=== PATIENT | male | born 1990 | race Asian ===

== ENCOUNTER 2023-01-28 10:31 | Outpatient (AMB) | payer OTHER, SELFPAY ==
--- NOTE | 2023-01-28 13:02 | AM.OFFWIN_ITS ---
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 Reporting symptoms of sinus congestion, sore throat and difficulty swallowing. Low-grade fever. No family member is sick. No recent travel. Patient reports symptoms of malaise and fatigue. Patient tested positive for COVID 3 weeks ago. Subsequently has tested negative. [facility] Social History Patient Tobacco Use Status: Never used Tobacco Physical Exam Vital Signs: Last Vital Signs Temp 98.5 F 01/28/23 13:08 Pulse 93 01/28/23 13:08 BP 108/64 01/28/23 13:08 Pulse Ox 94 01/28/23 13:08 Oxygen Delivery Method Room Air 01/28/23 13:08 BMI result Body Mass Index 26.6 Const General: cooperative and healthy appearing Nutritional Appearance: well nourished Orientation/consciousness: patient oriented x3 Limitations: no limitations HEENT Head: Yes normal to inspection Eyes General: appearance normal, both eyes and all related structures Neck Neck: Yes normal visual inspection Chest Chest palpation & inspection: normal palpation of entire chest wall Resp Effort & Inspection: normal respiratory effort Neuro General: patient oriented x3 Assessment & Plan Assessment & Plan (1) Upper respiratory tract infection: Code(s): J06.9 - Acute upper respiratory infection, unspecified Plan: Antibiotics ordered. Increase fluid intake. Tylenol for aches and pains. If symptoms worsen, follow-up here for a recheck. Coding Level of Care Code Est Pt Level 3 (97948) Diagnoses Upper respiratory tract infection J06.9
[2023-01-28 13:08] VITALS: BP 108/64; PULSE 93; TEMP 36.9; O2SAT 94; BMI 26.6
== END 2023-01-28 13:27 | disposition home or self-care (01) ==
PROVIDERS: PCP Internal Medicine; Visit Provider Internal Medicine
DX: J06.9 Acute upper respiratory infection, unspecified (principal)
CPT/HCPCS: 99213

== ENCOUNTER 2023-05-20 11:01 | Outpatient (AMB) | payer OTHER, SELFPAY ==
[2023-05-20 12:01] VITALS: BP 122/78; PULSE 72; TEMP 36.3; O2SAT 97; BMI 27.7
--- NOTE | 2023-05-20 12:01 | AM.OFFWIN_ITS ---
Intake Vital Signs 05/20/23 12:01 Height 5 ft 10 in Weight 193 lb BMI 27.7 BP 122/78 Blood Pressure Location Rt brachial Position Sitting Pulse 72 Pulse Source Pulse Oximeter Temp 97.4 F Pulse Oximetry (%) 97 Oxygen Delivery Method Room Air Intake Visit Reasons: EST/chest congestion/[phone] Intake Note: pt is here today for sore throat started saturday Patient Tobacco Use Status: Never used Tobacco Allergies No Known Allergies [No Known Allergies*] Allergy (Verified 05/20/23 12:02) Do you need a note to return to daycare/school/sports/work: No HPI EST/chest congestion/[phone] HPI Details 33 year old male patient presents today with a 3 day history of sore throat, headache, body aches, fever up to 101. His mother is sick with similar symptoms. He denies any cough or shortness of breath. Denies any GI symptoms. [facility] Social History Patient Tobacco Use Status: Never used Tobacco Review of Systems Const All systems reviewed & are unremarkable except as noted in HPI and below Physical Exam Vital Signs: Last Vital Signs Temp 97.4 F 05/20/23 12:01 Pulse 72 05/20/23 12:01 BP 122/78 05/20/23 12:01 Pulse Ox 97 05/20/23 12:01 Oxygen Delivery Method Room Air 05/20/23 12:01 BMI result Body Mass Index 27.7 Const General: cooperative, healthy appearing and no acute distress Nutritional Appearance: average body habitus HEENT Head: Yes normal to inspection Ears: hearing grossly normal bilaterally General nose exam: Normal external nose present and Normal nasal mucous membranes and turbinates present Face and sinus: Yes normal facial exam Mouth: Normal oral and palatal mucosa present and moist mucous membranes Throat: Yes posterior oropharynx abnormal (erythematous) Neck Neck: Yes no lymphadenopathy Resp Effort & Inspection: normal respiratory effort and able to speak in complete sentences Auscultation: clear to auscultation bilaterally Cardio Jugular venous distension: no JVD Palpation: normal PMI Rate: regular rate Rhythm: regular rhythm Skin General skin exam: no rashes or lesions noted Extrem General: Yes capillary refill normal and Yes no clubbing, cyanosis or edema Psych Appearance: grossly normal Mental Status: mental status grossly normal Speech and movement: Normal speech and movement present Assessment & Plan Assessment & Plan (1) Upper respiratory tract infection: Code(s): J06.9 - Acute upper respiratory infection, unspecified Qualifiers: URI type: unspecified viral URI Qualified Code(s): J06.9 - Acute upper respiratory infection, unspecified Plan: Rapid strep negative. Symptoms consistent with viral illness. Advised conservative measures - rest, hydration, otc cold/flu products for symptomatic treatment. He declines any viral testing. Advised to return to the clinic if he does not improve with time and conservative measures or if symptoms worsen/new symptoms develop. He verbalizes understanding and agrees to plan. Coding Level of Care Code Est Pt Level 3 (54541) Diagnoses Viral upper respiratory tract infection J06.9 URI type: unspecified viral URI
== END 2023-05-20 12:59 | disposition home or self-care (01) ==
PROVIDERS: PCP Internal Medicine; Visit Provider Nurse Practitioner Family
DX: J06.9 Acute upper respiratory infection, unspecified (principal)
CPT/HCPCS: 99213

== ENCOUNTER 2024-02-14 16:50 | Outpatient (AMB) | payer OTHER, SELFPAY ==
[2024-02-14 17:12] VITALS: BP 124/84; PULSE 72; O2SAT 97; BMI 27.4
--- NOTE | 2024-02-14 17:12 | MHC.PC.OV ---
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 Transfering care from Dr. Garay last seen in [facility]-03/07/2016. 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 Accompanied by: Self / Same As Patient Allergies No Known Allergies [No Known Allergies*] Allergy (Verified 02/14/24 17:13) Medication List - Last Reconciled 02/14/24 by Tati Cruz MD ascorbate calcium (vitamin C) 500 mg PO DAILY B-complex with vitamin C 1 tab PO DAILY cholecalciferol (vitamin D3) 50 mcg PO DAILY [creatine PO] Tobacco use date assessed: 02/14/24 Dental Screening Dental Screen Date: 02/14/24 Did you have a dental visit in the last 12 months?: Yes Did you have a dental problem in the last 6 months where you did not have access to dental care?: No Was dental information given to patient?: Patient has dentist HPI 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 in 03/29/2021 complains of dorsum of his foot pain diagnosis of ankle sprain. PAtient complains of pain on the R dorsum of the foot, deny fall or trauma. deny trauma from this. [facility] Medical History (Updated 02/14/24 @ 17:34 by Tati Cruz MD) Tear of lateral meniscus of left knee Dissecting folliculitis of scalp Surgical History (Updated 02/14/24 @ 17:17 by ELISSA Romeo) S/P left knee arthroscopy Family History (Updated 02/14/24 @ 17:29 by Tati Cruz MD) Paternal Uncle CVA (cerebral vascular accident) Social History (Updated 02/14/24 @ 17:30 by Tati Cruz MD) Housing: House Alcohol intake: current Comment: 1-2 Q 2-3 week 2-3 drinks Patient Tobacco Use Status: Never used Tobacco Years Smoked: hx of vape e-Cigarette/Vaping Use: Never Used service: No Current occupational status: employed Cognitive needs: No Hearing needs: No Vision needs: No Questionnaire PHQ-9 Over the last 2 weeks, how often have you been bothered by any of the following problems? 1. Little interest or pleasure in doing things: not at all 2. Feeling down, depressed, or hopeless: not at all 3. Trouble falling or staying asleep, or sleeping too much: not at all 4. Feeling tired or having little energy: not at all 5. Poor appetite or overeating: not at all 6. Feeling bad about yourself - or that you are a failure or have let yourself or your family down: not at all 7. Trouble concentrating on things, such as reading the newspaper or watching television: not at all 8. Moving or speaking so slowly that other people could have noticed. Or the opposite - being so fidgety or restless that you have been moving around a lot more than usual: not at all 9. Thoughts that you would be better off or of hurting yourself in some way: not at all Total score: 0 Depression Screening Interpretation: Negative Depression Screening Done: Yes [id number] - PHQ-9 Billing: Yes Source: Developed by Drs. Michel Kelley, Tessy Perry, Chaitanya Butler and colleagues, with an educational stanislav from [employer]. Thrive Questionnaire Date Thrive assessed: 02/14/24 I am a: Patient What is your living situation today?: I have a steady place to live Within the past 12 months, did the food you bought not last and you didn't have the money to get more?: Never true Within the past 12 months, did you worry whether your food would run out before you got money to buy more?: Never true Do you have trouble paying for medicines?: No Do you have trouble getting transportation to medical appointments?: No Do you have trouble paying your heating and electricity bill?: No Do you have trouble taking care of your child, family member or friend?: No Do you have trouble with day-to-day activities such as bathing, preparing meals, shopping, managing finances, etc.?: No Are you currently unemployed and looking for a job?: No Are you interested in more education?: No Please select the resources that you would like help with: None Currently or been in a relationship where the following occur: No concerns reported THRIVE Score: 0 AUDIT C Alcohol Use Questionnaire (AUDIT-C) 1. How often do you have a drink containing alcohol?: Monthly or less 2. How many drinks containing alcohol do you have on a typical day when you are drinking?: 1 or 2 3. How often do you have six or more drinks on one occasion?: Never Total Score: 1 RENATO-7 AMB Questionnaire RENATO-7 Date RENATO - 7 assessed: 02/14/24 Feeling nervous, anxious, or on edge: 0 = Not at all Not being able to stop or control worryin = Not at all Worrying too much about different things: 0 = Not at all Trouble relaxin = Not at all Being so restless that it is hard to sit still: 0 = Not at all Becoming easily annoyed or irritable: 0 = Not at all Feeling afraid as if something awful might happen: 0 = Not at all Total RENATO-7 score (0-4 normal; 5-9 mild; 10-14 moderate; 15-21 severe): 0 Source: Developed by Drs. Michel Kelley, Tessy Perry, Chaitanya Butler and colleagues, with an educational stanislav from [employer]. RENATO-7 Assessment Billing RENATO-7 Assessment Tool: RENATO-7 Assessment 55215 Physical exam (Primary Care) Vital Signs: Last Vital Signs Pulse 72 02/14/24 17:12 BP 124/84 02/14/24 17:12 Pulse Ox 97 02/14/24 17:12 Oxygen Delivery Method Room Air 02/14/24 17:12 BMI result Body Mass Index 27.4 Tobacco/Smoking Status: Tobacco use Status Tobacco use date assessed 02/14/24 02/14/24 17:20 Patient Tobacco Use Status Never used Tobacco 02/14/24 17:30 e-Cigarette/Vaping Use Never Used 02/14/24 17:30 PHQ-9: PHQ-9 Score PHQ-9: Total score 0 02/14/24 17:32 Depression Screening Interpretation: Negative Thrive Assessment: Date of Thrive Assessment Date Thrive assessed 02/14/24 02/14/24 17:20 Currently or been in a relationship where the following occur: No concerns reported Const General: alert; No acute distress Eyes Conjunctivae: conjunctivae normal Resp Auscultation: clear to auscultation bilaterally Cardio Rate: regular rate Rhythm: regular rhythm GI Inspection: Yes normal to inspection Extrem Other: Foot Exam pulses bilaterally felt equal no redness no swelling on the place where patient points to tenderness. General: Yes normal to inspection and No edema Ankle/foot/toe images: 1. Tender points where the patient was pointing on but no tenderness on palpation no redness no swelling full range of motion of toes right foot 2. 3. 4. Assessment and Plan Assessment & Plan (1) Overweight: Code(s): E66.3 - Overweight Plan: Diet and exercise (2) Right foot pain: Code(s): M79.671 - Pain in right foot Orders: Orders XR foot RT min 3V Today M79.671 - Pain in right foot Referrals Podiatry Referral M79.671 - Pain in right foot Coding Level of Care Code New Pt Level 4 (84222) Diagnoses Overweight E66.3 Right foot pain M79.671 Additional Codes RENATO-7 Assessment Billing - RENATO-7 Assessment Tool: RENATO-7 Assessment [id number] ([id number])
== END 2024-02-14 17:39 | disposition home or self-care (01) ==
PROVIDERS: PCP Internal Medicine; Visit Provider Internal Medicine
DX: M79.671 Pain in right foot (principal); E66.3 Overweight; Z68.27 Body mass index [BMI] 27.0-27.9, adult
CPT/HCPCS: 99213

== ENCOUNTER 2024-03-02 16:43 | Outpatient (REF) | payer OTHER, SELFPAY ==
--- NOTE | ~2024-03-02 | XR_ITS ---
EXAMINATION: XR FOOT, RIGHT CLINICAL INFORMATION: Pain in right foot. COMPARISON: None available. TECHNIQUE: AP, lateral, and oblique views of the right foot. FINDINGS: Minimal degenerative changes in the first metatarsophalangeal joint. Bone mineralization is normal. Minimal hypertrophic change along the plantar and dorsal aspects of the calcaneus. XR/XR foot RT min 3V IMPRESSION: Minimal degenerative changes. Electronically signed by: Isabelle Urena MD 03/30/2024 12:57 PM EDT
== END 2024-03-02 16:44 | disposition home or self-care (01) ==
LOC: HO.XRAY 16:43
PROVIDERS: PCP Internal Medicine; Visit Provider Internal Medicine
DX: M79.671 Pain in right foot (principal)
CPT/HCPCS: 73630